=== PATIENT | male | born 2000 | race Caucasian/White ===

== ENCOUNTER 2024-02-14 18:57 | Observation (INO) | payer OTHER, SELFPAY ==
[2024-02-14 19:02] VITALS: BP 137/94; PULSE 122; RESP 18; TEMP 36.5; O2SAT 99; BMI 20.7
[2024-02-14 20:00] VITALS: BP 114/78; PULSE 110; RESP 16; O2SAT 99
--- NOTE | 2024-02-14 20:39 | EX.ED.SAOD ---
HPI History of Present Illness Chief Complaint: Substance Abuse Narrative Narrative: 23-year-old male presenting for detox as he uses meth amphetamine. He states he snorts it and smokes it. He states he has a long-term program that he can get into but he has to go to a formal detox first. Denies any other symptoms at this time. PFSH PFSH Allergy/AdvReac Type Severity Reaction Status Date / Time No Known Allergies Allergy Verified 02/14/24 19:02 Social History Smoking Status: Current every day smoker tobacco type: cigarettes and smokeless tobacco ROS ROS ED Constitutional Constitutional ED: Denies chills, fever(s) or sweats Eyes Eyes: Denies blurry vision or change in vision ENT ENT ED: Denies ear pain or sore throat Cardiovascular Cardiovascular: Denies chest pain, palpitations or racing heartbeat Respiratory/Chest Respiratory/Chest: Denies cough, dyspnea or sputum Gastrointestinal Gastrointestinal: Denies abdominal pain, constipation, diarrhea, nausea or vomiting Genitourinary Genitourinary ED: Denies dysuria, hematuria or urinary frequency Musculoskeletal Musculoskeletal: Denies arthralgias, myalgias or neck pain Integumentary Denies abscess, Abrasions or rash Neurologic Neurologic: Denies headache(s), paresthesias or weakness Psychiatric Psychiatric: Denies anxiety, depression, suicidal ideation or suicidal thoughts Endocrine Endocrinology: Denies polydipsia or polyuria EXAM Physical Exam Const Vital Signs: 02/14/24 19:02 02/14/24 20:00 02/14/24 20:42 Temperature 97.7 F L 98.2 F Temperature Source Temporal Pulse Rate 122 H 110 H 67 Respiratory Rate 18 16 18 Blood Pressure 137/94 H 114/78 110/80 Blood Pressure Mean 108 90 90 Pulse Ox 99 99 99 Oxygen Delivery Method Room Air Room Air 02/14/24 21:00 Temperature 97.8 F Temperature Source Temporal Pulse Rate 102 H Respiratory Rate 18 Blood Pressure Blood Pressure Mean Pulse Ox 96 Oxygen Delivery Method Room Air Positive well nourished General Appearance ED: NAD; Negative for pallor HEENT atraumatic and trauma Eyes PERRL and EOMs intact bilaterally Lymph Lymphatic: no lymphadenopathy noted Chest Wall inspection of chest normal and palpation of chest normal Resp normal respiratory effort and clear to auscultation bilaterally Cardio regular rate and regular rhythm Neuro oriented x3 and CN's II-XII intact bilaterally Sensorium / Orientation: alert Motor Exam: strength 5/5 throughout Psych mental status grossly normal Skin General Skin Exam: Negative for jaundice or pallor MDM MDM MDM Narrative Medical decision making narrative: Patient presenting for detox. Discussed with hospitalist who is amenable to keeping him here. For this reason I did do screening lab work. CBC showed normal white blood cell count, hemoglobin and platelets. Renal function and electrolytes within normal limits. LFTs are normal. Urine drug screen positive for MDMA and amphetamines. EtOH 3. Discussed with hospitalist. Impression: 1. methamphetamine detox Lab Data Attestation: I reviewed the patient's lab results. Labs: Laboratory Results - last 24 hr 02/14/24 02/14/24 20:37 20:54 WBC 8.1 RBC 4.65 Hgb 15.5 Hct 44.5 MCV 95.7 H MCH 33.3 H MCHC 34.8 RDW Std Deviation 41.7 RDW Coeff of Tammi 11.9 Plt Count 295 MPV 9.9 Immature Gran % (Auto) 0.200 Neut % (Auto) 61.3 Lymph % (Auto) 29.0 [place] % (Auto) 6.4 Eos % (Auto) 2.5 Baso % (Auto) 0.6 Absolute Neuts (auto) 5.0 Absolute Lymphs (auto) 2.36 Nucleated RBC % 0 Sodium 141 Potassium 3.7 Chloride 106 Carbon Dioxide 32.0 Anion Gap 3 L BUN 11 Creatinine 0.96 Estim Creat Clear Calc 113.87 Est GFR (MDRD) Af Amer 125 Est GFR (MDRD) Non-Af 103 BUN/Creatinine Ratio 11.5 Glucose 74 Calcium 9.3 Total Bilirubin 0.50 AST 16 ALT 25 Alkaline Phosphatase 110 Total Protein 7.9 Albumin 4.1 Globulin 3.8 Albumin/Globulin Ratio 1.1 Urine Opiates Screen NEGATIVE Urine Methadone Screen NEGATIVE Ur Barbiturates Screen NEGATIVE Ur Phencyclidine Scrn NEGATIVE Ur Amphetamines Screen POSITIVE H MDMA (Ecstasy) Screen POSITIVE H U Benzodiazepines Scrn NEGATIVE Urine Cocaine Screen NEGATIVE U Cannabinoids Screen NEGATIVE Ur Drug Screen Comment Ethyl Alcohol 3.0 Discharge Plan Disposition Disposition: Acute Care [facility] Discharge Date/Time: 02/14/24 22:18
[2024-02-14 20:42] VITALS: BP 110/80; PULSE 67; RESP 18; TEMP 36.8; O2SAT 99
[2024-02-14 20:53] LABS: Absolute Lymphocyte Count 2.36 X10^3/uL (0.83-4.51); Basophil# 0.05 X10^3/uL; Basophil% 0.6 % (0-1); Eosinophils% 2.5 % (0-5); Hematocrit 44.5 % (40-54); Hemoglobin 15.5 g/dL (13.0-16.5); Lymphocyte # 2.36 X10^3/ul (0.83-4.51); Mean Corp Hgb Conc 34.8 g/dL (32-36); Mean Corpuscular Hgb 33.3 pg (27.0-32.0); Mean Corpuscular Volume 95.7 fL (80-94); Mean Platelet Vol. 9.9 fl (6.2-12.0); Monocyte# 0.52 X10^3/uL; Monocyte% 6.4 % (0-10); NRBC Flagged by Analyzer 0 % (0-5); Neutrophil # 4.99 X10^3/uL (2.7-7.7); Neutrophil % 61.3 % (47-70); Platelet Count 295 K/mm3 (150-450); RBC Distribution Width CV 11.9 % (11.6-14.6); RBC Distribution Width SD 41.7 fl (35.1-43.9); Red Blood Count 4.65 M/mm3 (4.6-6.2); White Blood Count 8.1 K/mm3 (4.4-11.0)
[2024-02-14 21:00] VITALS: PULSE 102; RESP 18; TEMP 36.6; O2SAT 96
[2024-02-14 21:09] LABS: ALB/GLOB Ratio 1.1 RATIO (0.9-2.4); AST(SGOT) 16 U/L (15-37); Alanine Aminotransfer ALT/SGPT 25 U/L (16-61); Albumin, Serum 4.1 g/dL (3.2-5.0); Alkaline Phosphatase 110 U/L (45-117); Anion Gap 3 (5-15); BUN 11 mg/dL (7-18); BUN/Creat Ratio 11.5 RATIO (10-20); Calcium,Total 9.3 mg/dL (8.5-10.1); Chloride 106 mmol/L (98-107); Creatinine, Serum 0.96 mg/dL (0.70-1.30); EST Glomerular Filtration Rate 103 mL/min (>60); Est Glom Filt Rate - Afr Amer 125 mL/min (>60); Estimated Creatinine Clearance 113.87 ml/min; Globulin 3.8 g/dL (2.2-4.2); Glucose 74 mg/dL (74-106); Potassium 3.7 mmol/L (3.5-5.1); Protein, Total 7.9 g/dL (6.4-8.2); Sodium Level 141 mmol/L (136-145)
[2024-02-14 21:09] LABS: Amphetamine Urine VISTA POSITIVE (<1000 ng/mL); Barbiturate Urine VISTA NEGATIVE (< 200 ng/mL); Benzodiazepine Urine VISTA NEGATIVE (< 200 ng/mL); Cocaine Urine VISTA NEGATIVE (< 300 ng/mL); Ecstacy Urine VISTA POSITIVE (< 500 ng/mL); Methadone Urine VISTA NEGATIVE (< 300 ng/mL); PCP Urine VISTA NEGATIVE (< 25 ng/mL); THC Urine VISTA NEGATIVE (< 50 ng/mL); Vista UDS pH Range 6
--- NOTE | 2024-02-14 21:44 | PCM.HP.STD ---
[facility] - General General Date of Admission: 02/14/24 Date of Service: 02/14/24 Chief Complaint: Wants Help with Detox. HPI Narrative SHELDON TAYLOR, is a 23 M with a past medical history of tobacco abuse, depression with anxiety and chronic methamphetamine abuse who presents to [facility] ER complaining of wanting help with detox. He states he snort and smokes methamphetamines and he has allegedly identified a long-term program he can get into but they apparently told him he had to go through a formal detox program so he decided to come here. He denies any symptoms of withdrawal at this time and his vital signs are stable. There is no report of fever, chills, nausea, vomiting, tremor, hallucinations, agitation, seizures or other recent illness. In the ER he was noted to have a UDS positive for Methamphetamine and MDMA and he was then diagnosed with impending methamphetamine withdrawal in the setting of chronic methamphetamine abuse and he was then admitted to the general medical floor for ongoing care for a stay that is expected to extend beyond 2 midnights. [facility] Medical History Smoker Anxiety Depression Substance abuse Allergy/AdvReac Type Severity Reaction Status Date / Time No Known Allergies Allergy Verified 02/14/24 19:02 Social History Smoking Status: Current every day smoker tobacco type: cigarettes and smokeless tobacco ROS ROS Narrative Review of systems: Constitutional: Patient denies fever, chills or sweats. Eyes: Patient denies changes in vision or discharge from eyes. ENT: Patient denies runny nose, sore throat or ear pain. CV: Patient denies chest pain, chest pressure or palpitations. GI: Patient denies abdominal pain, nausea, vomiting, diarrhea or constipation. : Patient denies dysuria or hematuria. MSK: Patient denies arthralgias or myalgias. Skin: Patient denies abscess, rash or jaundice. Neuro: Patient denies headache, paresthesias or focal neurologic deficits. Allergy: Patient denies lip swelling, tongue swelling or urticaria. Psychiatry: Patient denies symptoms of uncontrolled depression or anxiety. Endocrinology: Patient denies polyuria, polydipsia or polyphagia. 14 point ROS otherwise negative except for positives noted above. Vital Signs Vital Signs Vital Signs: 02/14/24 19:02 02/14/24 20:00 02/14/24 20:42 Temperature 97.7 F L 98.2 F Temperature Source Temporal Pulse Rate 122 H 110 H 67 Respiratory Rate 18 16 18 Blood Pressure 137/94 H 114/78 110/80 Blood Pressure Mean 108 90 90 Pulse Ox 99 99 99 Oxygen Delivery Method Room Air Room Air 02/14/24 21:00 Temperature 97.8 F Temperature Source Temporal Pulse Rate 102 H Respiratory Rate 18 Blood Pressure Blood Pressure Mean Pulse Ox 96 Oxygen Delivery Method Room Air Weight Weight: 148 lb 4.8 oz Body Mass Index (BMI) 20.7 Physical Exam Const alert, oriented x3, no apparent distress, average body habitus and healthy appearing General Appearance: cooperative HEENT normocephalic, head/scalp atraumatic, hearing grossly normal bilaterally and moist oral mucous membranes Eyes PERRL and EOMs intact bilaterally Neck no lymphadenopathy and supple Resp normal respiratory effort, no retractions, no use of accessory muscles and clear to auscultation bilaterally Cardio regular rate and regular rhythm GI normal to inspection, nondistended, normoactive bowel sounds, soft to palpation, non-tender and non-distended Extremity normal to inspection, full ROM and no clubbing, cyanosis or edema Skin Skin Narrative: Patient has numerous tattoos over his upper extremities but he has no evidence of abscess, rash or jaundice. Neuro oriented x3, CN's II-XII intact bilaterally, moves all extremities and no focal motor deficits Sensorium / Orientation: awake, alert, oriented to person, oriented to place and oriented to time Speech: speech normal Psych affect normal Results Medical Records Data Attestation: I reviewed the patient's medical records Lab / Micro Data Attestation: I reviewed the patient's lab results. 02/14/24 20:37 02/14/24 20:37 Labs: Laboratory Results - last 24 hr 02/14/24 20:37: WBC 8.1, RBC 4.65, Hgb 15.5, Hct 44.5, MCV 95.7 H, MCH 33.3 H, MCHC 34.8, RDW Std Deviation 41.7, RDW Coeff of Tammi 11.9, Plt Count 295, MPV 9.9, Immature Gran % (Auto) 0.200, Neut % (Auto) 61.3, Lymph % (Auto) 29.0, [place] % (Auto) 6.4, Eos % (Auto) 2.5, Baso % (Auto) 0.6, Absolute Neuts (auto) 5.0, Absolute Lymphs (auto) 2.36, Nucleated RBC % 0, Sodium 141, Potassium 3.7, Chloride 106, Carbon Dioxide 32.0, Anion Gap 3 L, BUN 11, Creatinine 0.96, Estim Creat Clear Calc 113.87, Est GFR (MDRD) Af Amer 125, Est GFR (MDRD) Non-Af 103, BUN/Creatinine Ratio 11.5, Glucose 74, Calcium 9.3, Total Bilirubin 0.50, AST 16, ALT 25, Alkaline Phosphatase 110, Total Protein 7.9, Albumin 4.1, Globulin 3.8, Albumin/Globulin Ratio 1.1, Ethyl Alcohol 3.0 02/14/24 20:54: Urine Opiates Screen NEGATIVE, Urine Methadone Screen NEGATIVE, Ur Barbiturates Screen NEGATIVE, Ur Phencyclidine Scrn NEGATIVE, Ur Amphetamines Screen POSITIVE H, MDMA (Ecstasy) Screen POSITIVE H, U Benzodiazepines Scrn NEGATIVE, Urine Cocaine Screen NEGATIVE, U Cannabinoids Screen NEGATIVE, Ur Drug Screen Comment Assessment & Plan Assessment/Plan (1) Methamphetamine abuse: (2) Tobacco abuse: (3) Depression with anxiety: PLAN: Plan 1. Impending Methamphetamine Withdrawal in the setting of Chronic Methamphetamine Abuse - Admit to general medical floor for treatment under stimulant detox protocol. Methamphetamine abuse will be strongly discouraged. Give Tylenol prn pain or fever. 2. Tobacco Abuse complicating #1 - Tobacco Cessation will be strongly encouraged with Nicotine patch offered to control cravings. 3. History of depression with anxiety - Stable at this time. Give IM Vistaril prn for breakthrough symptoms. 4. DVT prophylaxis - Lovenox 40 mg sq daily. Total time: Approximately 45 minutes. Charges/Coding Visit Charges Inpatient E&M: 12015 Init Hosp L1
[2024-02-14 22:00] VITALS: BP 118/90; PULSE 82; RESP 16; O2SAT 99
[2024-02-14 22:28] VITALS: BP 134/91; PULSE 77; RESP 18; TEMP 36.6; O2SAT 100
[2024-02-15 00:18] VITALS: BMI 20.1
[2024-02-15 00:20] VITALS: BP 141/86; PULSE 78; RESP 16; TEMP 36.5; O2SAT 100
--- NOTE | 2024-02-15 00:41 | NURSING ---
patient refusing ordered seizure pads
[2024-02-15 05:24] VITALS: BP 130/72; PULSE 81; RESP 16; TEMP 36.5; O2SAT 100
[2024-02-15 08:10] LABS: Absolute Lymphocyte Count 2.95 X10^3/uL (0.83-4.51); Absolute Neutrophil Count 2.8 X10^3/uL (2.0-7.7); Basophil# 0.04 X10^3/uL; Basophil% 0.6 % (0-1); Eosinophil# 0.23 X10^3/uL; Eosinophils% 3.5 % (0-5); Hematocrit 45.8 % (40-54); Hemoglobin 15.6 g/dL (13.0-16.5); Lymphocyte # 2.95 X10^3/ul (0.83-4.51); Mean Corp Hgb Conc 34.1 g/dL (32-36); Mean Corpuscular Hgb 33.1 pg (27.0-32.0); Mean Corpuscular Volume 97.2 fL (80-94); Mean Platelet Vol. 10.2 fl (6.2-12.0); Monocyte# 0.51 X10^3/uL; Monocyte% 7.8 % (0-10); NRBC Flagged by Analyzer 0 % (0-5); Neutrophil # 2.82 X10^3/uL (2.7-7.7); Neutrophil % 42.9 % (47-70); Platelet Count 271 K/mm3 (150-450); RBC Distribution Width SD 43.2 fl (35.1-43.9); Red Blood Count 4.71 M/mm3 (4.6-6.2); White Blood Count 6.6 K/mm3 (4.4-11.0)
[2024-02-15 08:18] VITALS: BP 119/85; PULSE 76; RESP 16; TEMP 36.5; O2SAT 100
[2024-02-15 08:52] LABS: ALB/GLOB Ratio 1.2 RATIO (0.9-2.4); AST(SGOT) 18 U/L (15-37); Alanine Aminotransfer ALT/SGPT 22 U/L (16-61); Alkaline Phosphatase 96 U/L (45-117); Anion Gap 3 (5-15); BUN 11 mg/dL (7-18); BUN/Creat Ratio 12.7 RATIO (10-20); Calcium,Total 9.4 mg/dL (8.5-10.1); Chloride 104 mmol/L (98-107); Creatinine, Serum 0.87 mg/dL (0.70-1.30); EST Glomerular Filtration Rate 116 mL/min (>60); Est Glom Filt Rate - Afr Amer 140 mL/min (>60); Estimated Creatinine Clearance 121.97 ml/min; Globulin 3.3 g/dL (2.2-4.2); Glucose 94 mg/dL (74-106); Phosphorus 3.8 mg/dL (2.5-4.9); Potassium 3.8 mmol/L (3.5-5.1); Protein, Total 7.3 g/dL (6.4-8.2); Sodium Level 140 mmol/L (136-145)
[2024-02-15] MEDS: Enoxaparin 40 MG/0.4 ML Syringe SC (10:21)
[2024-02-15] MEDS: Ensure Plus High Protein 120 ML LIQUID PO (10:27)
--- NOTE | 2024-02-15 10:56 | ADDICTION ---
Met with pt to complete RAMP assessments. Pt reports that he has been using since 2019. therapist and pt discussed tx options. Pt reports that his mother has set up inpatient tx at [facility]. Pt is not currently having any w/d symptoms.
--- NOTE | 2024-02-15 11:56 | DCINST_ITS ---
Discharge Instructions Diet Discharge Diet: No restrictions Activity Discharge Activity: Return to Normal Activity Dressing / Incision Call your doctor if you observe: Fever of 101 or Higher, Shortness of breath, Dizziness, Fainting spells, Swelling in the ankles, Chest pain and Increased palpitations (irregular heartbeat) Follow Up Care Test Results: Test results from this visit will be discussed in further detail at your follow- up appointment, if applicable. Discharge Plan Admission Admit Date/Time: 02/14/24 21:57 Attending Provider: Andrés Calloway Primary Care Provider: Care Physician,Edel Primary Consulting Providers: Pritesh Hernandez Discharge Orders/Prescriptions Referrals / Follow Up: Care Physician,No Primary [Primary Care Provider] - Disposition Disposition (needs filled in before D/C Order can be placed): Inpatient Rehab Unit/Facility
--- NOTE | 2024-02-15 13:11 | CHAPLAIN ---
Type of Pastoral Visit _x__ Initial Visit ___ Follow-up Visit ___ On-call Visit ___ General Patient Visit ___ Spiritual Assessment ___ Family Conference ___ Bereavement ___ Rapid Response ___ Code Blue ___ Other (describe below) Pastoral Care Referral From _x__ Patient ___ Family ___ Nurse ___ Physician ___ It Business Systems Analyst ___ Strategies Analyst ___ Other (describe below) Sacrament/Intervention _x__ Active listening ___ Anointing ___ Episcopalian ___ Bereavement ___ Communion _x__ Zoraida exploration ___ _x__ Life review _x__ Prayer ___ Reconciliation ___ Sacrament of Sick _x__ Supportive presence ___ Wedding ___ Other (describe below) Pastoral Comments patient is welcoming and polite with a willingness to talk about his situation, life, and hopes; pt admits to need and desire of full sobriety and has a plan to go to rehab with [facility]; 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
--- NOTE | 2024-02-15 17:37 | PCM.DC.SUM ---
Providers Date of Admission: 02/14/24 Primary Care Physician: No Primary Care Phys Reason For Visit: IMPENDING METHAMPHETAMINE W/D IN THE SETTING OF Diagnosis Discharge Diagnosis (1) Methamphetamine abuse: Status: Acute Code(s): F15.10 - Other stimulant abuse, uncomplicated (2) Tobacco abuse: Status: Acute Code(s): Z72.0 - Tobacco use (3) Depression with anxiety: Status: Acute Code(s): F41.8 - Other specified anxiety disorders Hospital Course Operations None Procedures None Summary of Care Provided Minutes Spent on Discharge: 31 Hospital Course: Per HPI: SHELDON TAYLOR, is a 23 M with a past medical history of tobacco abuse, depression with anxiety and chronic methamphetamine abuse who presents to [facility] ER complaining of wanting help with detox. He states he snort and smokes methamphetamines and he has allegedly identified a long-term program he can get into but they apparently told him he had to go through a formal detox program so he decided to come here. He denies any symptoms of withdrawal at this time and his vital signs are stable. There is no report of fever, chills, nausea, vomiting, tremor, hallucinations, agitation, seizures or other recent illness. In the ER he was noted to have a UDS positive for Methamphetamine and MDMA and he was then diagnosed with impending methamphetamine withdrawal in the setting of chronic methamphetamine abuse and he was then admitted to the general medical floor for ongoing care for a stay that is expected to extend beyond 2 midnights. Hospital Course: 1. Methamphetamine abuse?23-year-old male presented for detox from methamphetamines prior to going to inpatient rehab unit as it is there possibly was a detox prior to coming. There is no detox protocol for methamphetamine so he has no abnormal symptoms at this time and has completed the detox and therefore is cleared for discharge to the inpatient rehab facility. 2. Tobacco abuse, depression, anxiety are chronic medical conditions which complicate his care. Would recommend continuation of outpatient mental health treatment upon discharge from the rehab facility Physical Exam Narrative General: Alert, Oriented x3, Cooperative, No apparent distress HEENT: Atraumatic, PERRLA, EOMI, Normocephalic Oral: Moist Mucosa Neck: Supple, No JVD Lungs: Clear to auscultation, Normal air movement, No rhonchi, No wheeze, No rales Cardiovascular: Regular rate, Regular Rhythm, Normal S1, Normal S2, No murmurs Abdomen: Soft, Non Tender, Non-Distended, No Hepato-splenomegaly Extremities: No edema, Capillary Refill Less than 3 Seconds Skin: No rashes, No breakdown Musculoskeletal: No Tenderness to Palpation of Joints or Extremities Neurological: No focal neurological deficits, Motor Exam 5/5 strength throughout, Sensory exam intact to light touch and pain Psych/Mental Status: Normal Affect, Appropriate Weight / BMI Weight Weight: 143 lb 15.39 oz Body Mass Index (BMI) 20.1 ABG / Lab / Microbiology Data 02/15/24 07:24 02/15/24 07:24 Laboratory: Laboratory Results - last 24 hr 02/14/24 20:37: WBC 8.1, RBC 4.65, Hgb 15.5, Hct 44.5, MCV 95.7 H, MCH 33.3 H, MCHC 34.8, RDW Std Deviation 41.7, RDW Coeff of Tammi 11.9, Plt Count 295, MPV 9.9, Immature Gran % (Auto) 0.200, Neut % (Auto) 61.3, Lymph % (Auto) 29.0, [place] % (Auto) 6.4, Eos % (Auto) 2.5, Baso % (Auto) 0.6, Absolute Neuts (auto) 5.0, Absolute Lymphs (auto) 2.36, Nucleated RBC % 0, Sodium 141, Potassium 3.7, Chloride 106, Carbon Dioxide 32.0, Anion Gap 3 L, BUN 11, Creatinine 0.96, Estim Creat Clear Calc 113.87, Est GFR (MDRD) Af Amer 125, Est GFR (MDRD) Non-Af 103, BUN/Creatinine Ratio 11.5, Glucose 74, Calcium 9.3, Total Bilirubin 0.50, AST 16, ALT 25, Alkaline Phosphatase 110, Total Protein 7.9, Albumin 4.1, Globulin 3.8, Albumin/Globulin Ratio 1.1, Ethyl Alcohol 3.0 02/14/24 20:54: Urine Opiates Screen NEGATIVE, Urine Methadone Screen NEGATIVE, Ur Barbiturates Screen NEGATIVE, Ur Phencyclidine Scrn NEGATIVE, Ur Amphetamines Screen POSITIVE H, MDMA (Ecstasy) Screen POSITIVE H, U Benzodiazepines Scrn NEGATIVE, Urine Cocaine Screen NEGATIVE, U Cannabinoids Screen NEGATIVE, Ur Drug Screen Comment 02/15/24 07:24: WBC 6.6, RBC 4.71, Hgb 15.6, Hct 45.8, MCV 97.2 H, MCH 33.1 H, MCHC 34.1, RDW Std Deviation 43.2, RDW Coeff of Tammi 12.0, Plt Count 271, MPV 10.2, Immature Gran % (Auto) 0.200, Neut % (Auto) 42.9 L, Lymph % (Auto) 45.0 H, [place] % (Auto) 7.8, Eos % (Auto) 3.5, Baso % (Auto) 0.6, Absolute Neuts (auto) 2.8, Absolute Lymphs (auto) 2.95, Nucleated RBC % 0, Sodium 140, Potassium 3.8, Chloride 104, Carbon Dioxide 33.0 H, Anion Gap 3 L, BUN 11, Creatinine 0.87, Estim Creat Clear Calc 121.97, Est GFR (MDRD) Af Amer 140, Est GFR (MDRD) Non-Af 116, BUN/Creatinine Ratio 12.7, Glucose 94, Calcium 9.4, Phosphorus 3.8, Magnesium 2.0, Total Bilirubin 0.70, AST 18, ALT 22, Alkaline Phosphatase 96, Total Protein 7.3, Albumin 4.0, Globulin 3.3, Albumin/Globulin Ratio 1.2 D/C Instructions Discharge Diet: No restrictions Call your doctor if you observe: Fever of 101 or Higher, Shortness of breath, Dizziness, Fainting spells, Swelling in the ankles, Chest pain and Increased palpitations (irregular heartbeat) Meaningful Use Info Meaningful Use Meaningful Use Diagnoses (Choose all that apply): None applicable Ischemic Stroke Statin Dosing Therapy Reference: STATIN DOSE THERAPY REFERENCE: * Patients > 75 years receive moderate or high dose statin therapy. * Patients 75 years or YOUNGER should receive HIGH intensity statin dose unless contraindicated. You will be required to document reason for non-treatment if statin daily dose does not meet guidelines. HIGH DOSE STATIN THERAPY DAILY Atorvastatin > than or = to 40 mg Rosuvastatin > than or = to 20 mg Amlodipine + Atorvastatin > than or = to 2.5/40 mg Ezetimibe + Simvastatin 10/80 mg Simvastatin 80mg Discharge Plan Admission Admit Date/Time: 02/14/24 21:57 Attending Provider: Andrés Calloway Primary Care Provider: Care Physician,No Primary Consulting Providers: Pritesh Hernandez Discharge Orders/Prescriptions Referrals / Follow Up: Care Physician,No Primary [Primary Care Provider] - Disposition Disposition (needs filled in before D/C Order can be placed): Home, Self Care Charges/Coding Visit Charges Inpatient E&M: 39027 Disch Hosp >30min
== END 2024-02-15 16:50 ==
LOC: ED 19:50 → MS3 22:07
PROVIDERS: Admitting Provider Internal Medicine; Emergency Provider Student in an Organized Health Care Education/Training Program; Visit Provider Family Medicine
DX: F15.13 Other stimulant abuse with withdrawal (principal); F17.220 Nicotine dependence, chewing tobacco, uncomplicated; F41.8 Other specified anxiety disorders; F17.210 Nicotine dependence, cigarettes, uncomplicated
CPT/HCPCS: 36415; 80053; 80307; 82077; 83735; 84100; 85025; 96372; 99221; 99283; G0378